=== PATIENT | female | born 1960 | race Caucasian/White ===

== ENCOUNTER → 2016-11-12 | Outpatient (CLI) | payer MEDICAID | LOC: FIMAGING 08:40 | PROVIDERS: ATTEND Internal Medicine | DX: R10.13 Epigastric pain (principal); K21.9 Gastro-esophageal reflux disease without esophagitis; Z98.84 Bariatric surgery status ==

== ENCOUNTER 2016-12-12 08:17 | Inpatient (IN) | payer MEDICAID ==
[2016-12-10 16:02] LABS: ADD DIFF? NO; ADD MORPH? NO; ADD SCAN? NO; ATYPICAL LYMPHOCYTE FLAG 10 (0-99); FRAGMENT RBC FLAG 0 (0-99); HEMATOCRIT 34.7 % (38.0-47.0); HEMOGLOBIN 10.3 g/dL (12.6-16.3); LEFT SHIFT FLG 0 (0-99); LIPEMIA HEMOLYSIS FLAG 70 (0-99); MEAN CELL HEMOGLOBIN 26.1 pg (27.9-34.1); MEAN CELL HEMOGLOBIN CONCENTR. 29.7 g/dL (32.4-36.7); MEAN CELL VOLUME 88.1 fL (81.5-99.8); MEAN PLATELET VOLUME 10.8 fL (8.7-11.7); PLATELET CLUMPS FLAG 20 (0-99); PLATELET COUNT 273 10^3/uL (150-400); RED BLOOD CELL COUNT 3.94 10^6/uL (4.18-5.33); RED CELL DISTRIBUTION WIDTH 14.7 % (11.5-15.2)
--- NOTE | 2016-12-10 16:32 | CPEKG ---
Heart Rate: 57 RR Interval: 1053 P-R Interval: 136 QRSD Interval: 76 QT Interval: 416 QTC Interval: 405 P [place]: 43 QRS [place]: 20 T Wave [place]: 40 EKG Severity - NORMAL ECG - EKG Impression: SINUS RHYTHM Electronically Signed By: Dustin Pelaez 10-Dec-2016 18:12:30
[~2016-12-12 08:17] MED LIST: BUPIVACAINE 0.5% 30 ML SDV ONE; HEPARIN 10,000 UNIT/10 ML MDV ONE; ceFAZolin 1 GM/5 ML SYR ONE; cefOXitin SODIUM 1 GM in D5W 50 ML IV ONE
[2016-12-12] MEDS ORDERED: LR 1,000 ML IV ONE (09:00)
[2016-12-12] MEDS ORDERED: LIDOCAINE 2% 100 MG/5 ML SYR ONE (09:52)
[2016-12-12] MEDS ORDERED: ROCURONIUM 100 MG/10 ML VIAL ONE (09:52)
[2016-12-12] MEDS ORDERED: PROPOFOL 200 MG/20 ML VIAL ONE (09:52)
[2016-12-12] MEDS ORDERED: SUGAMMADEX SODIUM 200 MG/2 ML VIAL IVP ONE (09:52)
[2016-12-12] MEDS ORDERED: fentaNYL 250 MCG/5 ML INJ ONE (09:52)
[2016-12-12] MEDS ORDERED: DEXAMETHASONE 4 MG/ML VIAL ONE ×2 (09:52)
[2016-12-12] MEDS ORDERED: MIDAZOLAM 2 MG/2 ML VIAL ONE (09:55)
[2016-12-12] MEDS ORDERED: fentaNYL 100 MCG/2 ML INJ ONE (11:36)
--- NOTE | 2016-12-12 12:16 | POSTOPPROG ---
Post Op Note Date of Operation: 12/12/16 Surgeon: Akshat Alcala Manager Of Hospital: Josue Alcala PA-C, SHRUTHI Gomez MS, Alec Patricio MS Anesthesiologist: Savanna Muro MD Anesthesia: GET(General Endotracheal) Pre-op Diagnosis: GERD, hiatal paraesophageal hernia Post-op Diagnosis: same Procedure: partial lap rossi fundoplication with hiatal hernia repair Inf/Abcess present in the surg proc area at time of surgery?: No EBL: Minimal Complications: none
[2016-12-12] MEDS ORDERED: HYDROmorphONE/DILAUDID 1 MG/ML SYR IVP PRN (12:18)
[2016-12-12] MEDS ORDERED: OXYCODONE/APAP 5/325 TAB PO PRN (12:18)
[2016-12-12] MEDS ORDERED: ACETAMINOPHEN 325 MG TAB PO PRN (12:18)
[2016-12-12] MEDS ORDERED: HYDROCODONE/APAP 5/325 TAB PO PRN (12:18)
[2016-12-12] MEDS ORDERED: ONDANSETRON 4 MG/2 ML VIAL IVP PRN (12:18)
[2016-12-12] MEDS ORDERED: MEPERIDINE 25 MG/ML SYR ONE (13:10)
[2016-12-12] MEDS: D5W 1/2 NS W/ 20 KCl/L 1,000 ML IV SCH (14:44)
[2016-12-13] MEDS: D5W 1/2 NS W/ 20 KCl/L 1,000 ML IV SCH (00:49)
[2016-12-13] MEDS: LEVOTHYROXINE 125 MCG TAB PO SCH (05:40)
[2016-12-13 05:45] LABS: % IMMATURE GRANULYOCYTES 0.3 % (0.0-1.1); ABSOLUTE IMMATURE GRANULOCYTES 0.02 10^3/uL (0.00-0.10); ADD DIFF? NO; ADD MORPH? NO; ADD SCAN? NO; ATYPICAL LYMPHOCYTE FLAG 20 (0-99); FRAGMENT RBC FLAG 0 (0-99); HEMOGLOBIN 9.5 g/dL (12.6-16.3); LEFT SHIFT FLG 0 (0-99); LIPEMIA HEMOLYSIS FLAG 80 (0-99); MEAN CELL HEMOGLOBIN 26.5 pg (27.9-34.1); MEAN CELL HEMOGLOBIN CONCENTR. 30.6 g/dL (32.4-36.7); MEAN CELL VOLUME 86.6 fL (81.5-99.8); MEAN PLATELET VOLUME 10.8 fL (8.7-11.7); PLATELET CLUMPS FLAG 10 (0-99); PLATELET COUNT 267 10^3/uL (150-400); RED BLOOD CELL COUNT 3.58 10^6/uL (4.18-5.33); RED CELL DISTRIBUTION WIDTH 14.7 % (11.5-15.2)
[2016-12-13 06:00] LABS: ANION GAP 8 mEq/L (8-16); CALCIUM 8.8 mg/dL (8.5-10.4); CARBON DIOXIDE 25 mEq/l (22-31); CHLORIDE 108 mEq/L (97-110); CREATININE 0.8 mg/dL (0.6-1.0); GLOMERULAR FILTRATION RATE > 60; GLUCOSE 112 mg/dL (70-100); POTASSIUM 4.1 mEq/L (3.5-5.2); SODIUM 141 mEq/L (134-144)
[2016-12-13] MEDS: VENLAFAXINE XR 75 MG CAP PO SCH (08:34)
[2016-12-13] MEDS ORDERED: clonazePAM 0.5 MG TAB PO SCH (09:00)
--- NOTE | 2016-12-13 09:31 | SOAPPROG ---
SOAP Progress Note Assessment/Plan: Assessment: DOING WELL/ TOLERATING PO/ WOUNDS OK/ AFEBRILE/ Plan: ADVANCE DIET 12/13/16 09:30 Objective: Vital Signs Temp Pulse Resp BP Pulse Ox 36.9 C 66 18 127/77 H 92 12/13/16 07:53 12/13/16 07:53 12/13/16 07:53 12/13/16 07:53 12/13/16 07:53 Laboratory Results 12/13/16 05:12 12/13/16 05:12 12/12/16 12/13/16 12/14/16 05:59 05:59 05:59 Intake Total 2916 Output Total 2320 Balance 596 ICD10 Worksheet Patient Problems: Problems Problem Status Onset Hiatal hernia with gastroesophageal reflux Acute - ICD10 Problem Qualifiers (1) Hiatal hernia with gastroesophageal reflux
[2016-12-13] MEDS: clonazePAM 0.5 MG TAB PO PRN (23:27)
[2016-12-14] MEDS: LEVOTHYROXINE 125 MCG TAB PO SCH (05:26)
[2016-12-14] MEDS: VENLAFAXINE XR 75 MG CAP PO SCH (09:05)
--- NOTE | 2016-12-14 21:50 | SOAPPROG ---
SOAP Progress Note Assessment/Plan: Assessment: DOING WELL/ TOLERATING PO/ WOUNDS OK/ AFEBRILE/ Plan: ADVANCE DIET 12/13/16 09:30 12/14/16 21:49 DOING VERY WELL/ EATING/ MINIMAL PAIN/ VS STABLE/ HOME IN AM/ ADVANCE DIET Objective: Vital Signs Temp Pulse Resp BP Pulse Ox 36.9 C 82 18 147/90 H 97 12/14/16 20:00 12/14/16 20:00 12/14/16 20:00 12/14/16 20:00 12/14/16 20:00 Laboratory Results 12/13/16 05:12 12/13/16 05:12 12/13/16 12/14/16 12/15/16 05:59 05:59 05:59 Intake Total 2916 960 Output Total 2320 1600 Balance 596 -580 ICD10 Worksheet Patient Problems: Problems Problem Status Onset Hiatal hernia with gastroesophageal reflux Acute - ICD10 Problem Qualifiers (1) Hiatal hernia with gastroesophageal reflux
[2016-12-15] MEDS: clonazePAM 0.5 MG TAB PO PRN (00:28)
[2016-12-15] MEDS: LEVOTHYROXINE 125 MCG TAB PO SCH (05:50)
[2016-12-15 07:19] VITALS: BP 130/70; PULSE 68; RESP 16; TEMP 98.2; O2SAT 91
[2016-12-15] MEDS: VENLAFAXINE XR 75 MG CAP PO SCH (09:19)
--- NOTE | 2016-12-15 11:07 | SOAPPROG ---
SOAP Progress Note Assessment/Plan: Assessment: 56yo female s/p lap rossi Tolerating diet, no significant pain, normal BM PE awake alert comfortable abdomen incisions clean dry intact, soft nontender Plan: d/c home 12/15/16 11:06 Objective: Vital Signs Temp Pulse Resp BP Pulse Ox 36.8 C 68 16 130/70 H 91 L 12/15/16 07:18 12/15/16 07:18 12/15/16 07:18 12/15/16 07:18 12/15/16 07:18 Laboratory Results 12/13/16 05:12 12/13/16 05:12 12/14/16 12/15/16 12/16/16 05:59 05:59 05:59 Intake Total 960 Output Total 1600 Balance -640 ICD10 Worksheet Patient Problems: Problems Problem Status Onset Hiatal hernia with gastroesophageal reflux Acute
--- NOTE | 2016-12-22 21:07 | GDS ---
[f rep st] DISCHARGE SUMMARY REASON FOR ADMISSION: Elective surgery for paraesophageal hernia. HOSPITAL COURSE: Patient is a very pleasant, 56-year-old female, who underwent laparoscopic Pankaj fundoplication with Dr. Gerhard Acuña on 12/12/2016. The patient tolerated the surgery very well an d was discharged on 12/15/2016 when she was tolerating a regular diet. She was discharged with Norc o #20 for pain. Instructions not to lift heavy for 6 weeks. She will follow up in our office. /[id number]/MODL
== END 2016-12-15 12:40 | disposition home or self-care (01) | DRG 328 ==
LOC: F3N 08:17 → F3E 14:17 → OBSVTOIN 12-13 09:31
PROVIDERS: ADMIT Surgery; ATTEND Surgery
DX: K21.9 Gastro-esophageal reflux disease without esophagitis (principal); K44.9 Diaphragmatic hernia without obstruction or gangrene; Z98.84 Bariatric surgery status
CPT/HCPCS: G0378; J0697; J1100; J1644; J2001; J2250; J2704; J3010

== ENCOUNTER → 2016-12-29 | Outpatient (CLI) | payer MEDICAID | LOC: EDSTATUS 10:06 → FIMAGING 14:41 | PROVIDERS: ATTEND Surgery | DX: R07.1 Chest pain on breathing (principal); Z98.890 Other specified postprocedural states ==

== ENCOUNTER → 2017-05-11 | Outpatient (CLI) | payer MEDICAID | LOC: BRMIMAGING 08:53 | PROVIDERS: ATTEND Surgery | DX: M19.012 Primary osteoarthritis, left shoulder (principal) | CPT/HCPCS: 73030-PO; 76705-PO ==

== ENCOUNTER → 2017-10-28 | Outpatient (CLI) | payer MEDICAID | LOC: BRMIMAGING 09:45 | PROVIDERS: ATTEND Pain Medicine Interventional Pain Medicine | DX: M51.36 Other intervertebral disc degeneration, lumbar region (principal); M43.16 Spondylolisthesis, lumbar region; M53.86 Other specified dorsopathies, lumbar region; M25.551 Pain in right hip; M25.552 Pain in left hip | CPT/HCPCS: 72100-PO; 73521-PO ==

== ENCOUNTER → 2018-06-07 | Outpatient (CLI) | payer MEDICAID | LOC: BRMIMAGING 13:39 | PROVIDERS: ATTEND Internal Medicine | DX: Z12.31 Encounter for screening mammogram for malignant neoplasm of breast (principal) ==

== ENCOUNTER → 2018-07-06 | Outpatient (CLI) | payer MEDICAID | LOC: FIMAGING 14:22 | PROVIDERS: ATTEND Nurse Practitioner Adult Health | DX: N64.52 Nipple discharge (principal) ==